=== PATIENT | male | born 1935 | race Caucasian/White ===

== ENCOUNTER 2018-07-05 15:23 | Inpatient (IN) | payer MEDICARE ==
[~2018-07-05] VITALS: Ht 170.2 cm; Wt 69.9 kg
[2018-07-05 16:02] LABS: HEMATOCRIT 38 % (39-51); HEMOGLOBIN 12.6 g/dL (13.5-17.5); RED BLOOD CELL COUNT(AUTO) 3.89 MIL/uL (4.5-6.0); WHITE BLOOD COUNT (AUTO) 3.8 K/uL (4.3-11.0)
[2018-07-05 16:03] LABS: EOSINOPHILS % (AUTO) 1.7 % (0.0-6.0); LYMPHOCYTES # (AUTO) 1.3 /CMM (0.8-4.8); LYMPHOCYTES % (AUTO) 34.5 % (20.0-44.0); MEAN CORPUSCULAR HEMOGLOBIN 32 PG (26.0-33.0); MEAN CORPUSCULAR HGB CONC 34 g/dl (31.0-36.0); MEAN CORPUSCULAR VOLUME 97 fL (80-96); MONOCYTES # (AUTO) 0.5 /CMM (0.1-1.30); MONOCYTES % (AUTO) 12.4 % (2.0-12.0); NEUTROPHILS # (AUTO) 1.9 /CMM (1.8-8.9); NEUTROPHILS % (AUTO) 50.4 % (43.0-81.0); PLATELET COUNT (AUTO) 124 /CMM (150-450); RDW COEFFICIENT OF VARIATION 12.9 (11.5-15.0)
[2018-07-05 16:04] LABS: APPEARANCE,URINE Slightly Cloudy (CLEAR); BILIRUBIN,URINE Negative (NEGATIVE); BLOOD, URINE Negative Ery/uL (NEGATIVE); COLOR,URINE Dark (YELLOW); KETONES,URINE Negative (NEGATIVE); LEUKOCYTE ESTERASE ,URINE Negative (NEGATIVE); NITRITE, URINE Negative (NEGATIVE); PH,URINE 5.5 (5.0-8.0); PROTEIN,URINE Negative (NEGATIVE); UGLUCOSE Negative (NEGATIVE); UROBILINOGEN,URINE 0.2 EU/dL (0.2)
[2018-07-05 16:13] LABS: CALCIUM, SERUM 9.4 mg/dL (8.5-10.1); CARBON DIOXIDE 32 mmol/L (21-32); CHLORIDE 104 mmol/L (98-107); CREATININE 0.9 mg/dL (0.6-1.3); GLUCOSE 99 mg/dL (74-106); POTASSIUM 4.2 mmol/L (3.5-5.1); SODIUM SERUM 139 mmol/L (136-145); UREA NITROGEN, BLOOD 21 mg/dL (7-18)
[2018-07-05 16:17] LABS: BACTERIA,URINE None seen /HPF (None Seen); MUCUS,URINE Moderate /LPF (None Seen); RBC,URINE NONE SEEN /HPF (0-2); SQUAMOUS EPITHELIAL CELL,UR Rare /HPF (None Seen); WBC,URINE NONE SEEN /HPF (0-3)
[2018-07-05 16:18] LABS: ALANINE AMINOTRANSFERASE 52 U/L (12-78); ALBUMIN 3.7 g/dL (3.4-5.0); ALCOHOL, BLOOD < 3 mg/dL (0-0); ALKALINE PHOSPHATASE 89 U/L (46-116); ASPARTATE AMINOTRANSFERASE 37 U/L (15-37); BILIRUBIN,DIRECT 0.1 mg/dL (0.0-0.2); BILIRUBIN,TOTAL 0.5 mg/dL (0.2-1.0); TOTAL PROTEIN, SERUM 7.3 g/dL (6.4-8.2)
[2018-07-05 16:19] LABS: ACETAMINOPHEN < 2 ug/ml (10-30); SALICYLATE 0.5 mg/dL (2.8-20.0)
[2018-07-05] MEDS ORDERED: LORA-259 PO (18:54)
[2018-07-05] MEDS ORDERED: PERP4TAB11 PO (18:54)
[2018-07-05 20:15] VITALS: BP 136/82
[2018-07-05] MEDS ORDERED: ACETAMINOPHEN 325 MG TABLET PO PRN (21:00)
[2018-07-05] MEDS ORDERED: MAG HYDROX/AL HYDROX/SIMETH 30 ML UDC PO PRN (21:00)
[2018-07-05] MEDS ORDERED: MAGNESIUM HYDROXIDE 30 ML UDC PO PRN (21:00)
[2018-07-05] MEDS ORDERED: ZOLPIDEM TARTRATE 5 MG TABLET PO PRN (21:00)
[2018-07-05] MEDS: LORAZEPAM 0.5 MG TABLET PO PRN (21:35)
[2018-07-06 08:00] VITALS: BP 140/79
[2018-07-06 08:04] LABS: CREATININE 0.9 mg/dL (0.6-1.3)
[2018-07-06 08:11] LABS: CHOLESTEROL 122 mg/dL (<200); HDL CHOLESTEROL 49 mg/dL (40-60); LDL 70 mg/dL (0-99); TRIGLYCERIDES 36 mg/dL (30-150)
[2018-07-06 08:16] VITALS: BP 140/79
[2018-07-06] MEDS: LORAZEPAM 0.5 MG TABLET PO PRN ×2 (09:49→21:38)
[2018-07-06] MEDS ORDERED: BISACODYL (5 MG) 5 MG TABLET.DR PO PRN (11:00)
[2018-07-06 16:16] VITALS: BP 140/77
[2018-07-06] MEDS: risperiDONE 1 MG TABLET PO SCH (18:05)
[2018-07-06 20:11] VITALS: BP 149/95
[2018-07-07 08:00] VITALS: BP 136/80
[2018-07-07] MEDS: risperiDONE 1 MG TABLET PO SCH ×2 (08:39→09:00)
[2018-07-07] MEDS: LORAZEPAM 0.5 MG TABLET PO PRN ×2 (08:39→22:10)
[2018-07-07] MEDS: OLANZAPINE 5 MG/TAB.RAPDIS PO SCH ×2 (15:29→22:08)
[2018-07-07 16:00] VITALS: BP 134/85
[2018-07-07 20:01] VITALS: BP 135/87
[2018-07-08 08:30] VITALS: BP 148/91
[2018-07-08] MEDS: OLANZAPINE 5 MG/TAB.RAPDIS PO SCH (08:32)
[2018-07-08] MEDS: LORAZEPAM 0.5 MG TABLET PO PRN (08:34)
== END 2018-07-08 14:50 | disposition left against medical advice (07) | DRG 885 ==
LOC: ER 15:24 → GPSOV2 19:50 → GPS 19:57
PROVIDERS: ADMIT Psychiatry & Neurology Psychiatry; ATTEND Nurse Practitioner Acute Care
DX: F20.0 Paranoid schizophrenia (principal); D61.818 Other pancytopenia; F32.9 Major depressive disorder, single episode, unspecified; F41.9 Anxiety disorder, unspecified
CPT/HCPCS: 36415; 80048-TC; 80061-TC; 80076-TC; 80305; 81000-TC; 82565-TC; 85025-TC; 87081-TC; A4606; G0480; Z7610